=== PATIENT | female | born 1990 | race Two or more races ===

== ENCOUNTER 2016-09-04 21:34 | Emergency (ER) | payer BC ==
[~2016-09-04] VITALS: Ht 160 cm; Wt 56.7 kg
[2016-09-04] MEDS ORDERED: LIDOCAINE 1% / SOD BICARB 8.4% 20 ML VIAL. IJ ONE (21:45)
[2016-09-04 21:47] VITALS: BP 103/63
--- NOTE | 2016-09-04 22:03 | PHYS DOC ---
Past Medical History Past Medical History: No Pertinent History Past Surgical History: No Surgical History Alcohol Use: Occasionally Drug Use: None Adult General Chief Complaint Chief Complaint: LACERATION/AVULSION HPI HPI Patient is a 26 year old female presents the emergency room with complaint of a puncture wound to the right side of her jaw that occurred approximately 30 minutes prior to arrival. Patient states she was utilizing a Read head screwdriver when she was applying "too much force" and the screwdriver struck her in the jaw. She denies any additional injuries or concerns. She reports that her last tetanus shot was approximately 3 years ago. Review of Systems Review of Systems Constitutional: Denies fever or chills [] Eyes: Denies change in visual acuity, redness, or eye pain [] HENT: Denies nasal congestion or sore throat [] Respiratory: Denies cough or shortness of breath [] Cardiovascular: No additional information not addressed in HPI [] GI: Denies abdominal pain, nausea, vomiting, bloody stools or diarrhea [] : Denies dysuria or hematuria [] Musculoskeletal: Denies back pain or joint pain [] Integument: Laceration right side of jaw Neurologic: Denies headache, focal weakness or sensory changes [] Endocrine: Denies polyuria or polydipsia [] Current Medications Current Medications Current Medications Medications (Trade) Dose Ordered Sig/Vicki Start Time Stop Time Status Last Admin Dose Admin Lidocaine/Sodium Bicarbonate (Buffered Lidocaine 1%) 20 ml 1X ONCE 09/04/16 21:45 09/04/16 21:48 DC 09/04/16 21:42 20 ML Allergies Allergies Allergies Coded Allergies Type Severity Reaction Last Updated Verified No Known Drug Allergies 09/04/16 No Physical Exam Physical Exam Constitutional: Well developed, well nourished, no acute distress, non-toxic appearance. [] HENT: Normocephalic, bilateral external ears normal, oropharynx moist, no oral exudates, nose normal. There is no evidence of intraoral injury. Eyes: PERRLA, EOMI, conjunctiva normal, no discharge. [] Neck: Normal range of motion, no tenderness, supple, no stridor. [] Cardiovascular:Heart rate regular rhythm, no murmur [] Lungs & Thorax: Bilateral breath sounds clear to auscultation [] Abdomen: Bowel sounds normal, soft, no tenderness, no masses, no pulsatile masses. [] Skin: 1 cm, stellate laceration to the anterior portion of the right mandibular region. This penetrates into the subcutaneous tissue. There is currently no active bleeding. There are no foreign bodies. Back: No tenderness, no CVA tenderness. [] Extremities: No tenderness, no cyanosis, no clubbing, ROM intact, no edema. [] Neurologic: Alert and oriented X 3, normal motor function, normal sensory function, no focal deficits noted. [] Psychologic: Affect normal, judgement normal, mood normal. [] Current Patient Data Vital Signs Vital Signs Date Time Temp Pulse Resp B/P Pulse Ox O2 Delivery O2 Flow Rate FiO2 09/04/16 21:47 98.3 89 18 96 Room Air 98.3 EKG EKG [] Radiology/Procedures Radiology/Procedures Procedure note: 1 cm laceration was anesthetized with buffered 1% lidocaine. Wound was cleansed with Betadine solution and rinsed with saline. Wound was inspected for foreign bodies. No foreign bodies were found. Wound margins were approximated utilizing 6-0 nylon in a simple interrupted fashion of a singular closure for total of 2 stitches. Patient tolerated the procedure well. Course & Med Decision Making Course & Med Decision Making Pertinent Labs and Imaging studies reviewed. (See chart for details) [] Dragon Disclaimer Dragon Disclaimer This electronic medical record was generated, in whole or in part, using a voice recognition dictation system. Departure Departure Impression: Primary Impression: Laceration Disposition: 01 HOME, SELF-CARE Condition: IMPROVED Patient Instructions: Facial Laceration, [id number] Additional Instructions: 1. Stitches should be removed in 5-7 days. 2. Keep the area clean and dry. The Steri-Strips will eventually fall off on their own. 3. Please review the discharge instructions for reasons to return to the emergency room. 4. Use the pamphlet provided for assistance in finding a primary care doctor to address your medical concerns and for follow-up needs. RONALDO GOODE Sep 04, 2016 22:02
== END 2016-09-04 22:22 | disposition home or self-care (01) ==
LOC: ER 21:34
DX: S01.81XA Laceration without foreign body of other part of head, initial encounter (principal); W22.8XXA Striking against or struck by other objects, initial encounter; Y93.89 Activity, other specified; Y92.89 Other specified places as the place of occurrence of the external cause; Y99.8 Other external cause status
CPT/HCPCS: 12011; 99283-25

== ENCOUNTER 2016-09-10 11:30 | Emergency (ER) | payer BC ==
[~2016-09-10] VITALS: Ht 157.5 cm; Wt 56.7 kg
[2016-09-10 13:20] VITALS: BP 97/59
--- NOTE | 2016-09-10 13:53 | PHYS DOC ---
Past Medical History Past Medical History: No Pertinent History Past Surgical History: No Surgical History Alcohol Use: Occasionally Drug Use: None Adult General Chief Complaint Chief Complaint: SUTURE/STAPLE REMOVAL HPI HPI Patient is a 26 year old female who presents to the emergency department for removal of sutures. The patient had a facial laceration suffered 6 days ago and had 2 sutures placed at that time. Patient states that the facial laceration has been healing well and she is currently not having any pain, swelling, or drainage from the wound. Patient denies any somatic symptoms at this time. Review of Systems Review of Systems Constitutional: Denies fever or chills [] HENT: Denies nasal congestion or sore throat [] Respiratory: Denies cough or shortness of breath [] Musculoskeletal: Denies back pain or joint pain [] Integument: Denies rash or skin lesions [] Neurologic: Denies headache, focal weakness or sensory changes [] Allergies Allergies Allergies Coded Allergies Type Severity Reaction Last Updated Verified No Known Drug Allergies 09/04/16 No Physical Exam Physical Exam Constitutional: Well developed, well nourished, no acute distress, non-toxic appearance. [] HENT: Normocephalic, atraumatic, half centimeter laceration to right anterior chin with 2 Ethilon sutures present, no drainage, nonindurated, nonerythematous , bilateral external ears normal. [] Neck: Normal range of motion, no tenderness, supple, no stridor. [] Skin: Warm, dry, no erythema, no rash. [] Extremities: No tenderness, no cyanosis, no clubbing, ROM intact, no edema. [] Neurologic: Alert and oriented X 3, normal gait. [] Current Patient Data Vital Signs Vital Signs Date Time Temp Pulse Resp B/P Pulse Ox O2 Delivery O2 Flow Rate FiO2 09/10/16 13:20 98.2 84 16 98 Room Air 98.2 EKG EKG Not performed [] Radiology/Procedures Radiology/Procedures Not performed [] Course & Med Decision Making Course & Med Decision Making Pertinent Labs and Imaging studies reviewed. (See chart for details) Sutures were removed as outlined in the procedure note. Recommended routine follow-up with primary doctor as needed for any other complaints. Dragon Disclaimer Dragon Disclaimer This electronic medical record was generated, in whole or in part, using a voice recognition dictation system. Suture/Staple Removal Indication: Removal of facial sutures Procedure: The patient was placed in the appropriate position and the sutures were removed without difficulty. Other items: Total number of sutures removed: 2 The patient tolerated the procedure without difficulty. Complications: None Departure Departure Impression: Primary Impression: Visit for suture removal Disposition: 01 HOME, SELF-CARE Condition: GOOD Referrals: NO PCP (PCP) Patient Instructions: Suture Removal Additional Instructions: Thank you for allowing us to take care of you in the emergency department today. Your wound appears to be healing well. This will not need any further care at this time. Follow-up as needed with your family physician. ENOC VALLE MD Sep 10, 2016 13:53
== END 2016-09-10 14:09 | disposition home or self-care (01) ==
LOC: ER 11:30
DX: S01.81XD Laceration without foreign body of other part of head, subsequent encounter (principal); X58.XXXD Exposure to other specified factors, subsequent encounter; Y99.8 Other external cause status; Y93.89 Activity, other specified; Y92.89 Other specified places as the place of occurrence of the external cause
CPT/HCPCS: 99281